=== PATIENT | female | born 1970 | race Hispanic/Latino ===

== ENCOUNTER 2025-05-28 19:54 | Emergency (ER) | payer OTHER ==
[~2025-05-28] VITALS: Ht 165.1 cm; Wt 115.7 kg
[~2025-05-28 19:54] MED LIST: ATORVASTATIN CA10 MG PO; LEVOTHYROXINE75 MCG PO; LOSARTAN POTASS50 MG PO; METFORMIN HCL500 M1 PO; VITAMIN D350 MCG PEG
[2025-05-28 20:16] VITALS: TEMP 98.4
[2025-05-28 20:40] LABS: BASOPHILS % 0.4 % (0.0-1.0); EOSINOPHILS % 3.0 % (0.0-6.0); LYMPHOCYTES % 27.7 % (18.0-39.1); MONOCYTES % 6.0 % (4.4-11.3); NEUTROPHILS % 62.7 % (38.7-80.0); RED CELL DISTRIBUTION WIDTH 14.2 % (11.7-14.4)
[2025-05-28] MEDS: LIDOCAINE VISC 2% SOLN 15 ML UDC PO STA (20:48)
[2025-05-28] MEDS: BELLADONNA ALK/PHENOBARBITAL 5 ML UDC PO ONE (20:49)
[2025-05-28] MEDS: MAGNESIUM/ALUMINUM/SIMETHICONE 30 ML UDC PO STA (20:49)
[2025-05-28 21:03] LABS: EST GLOMERULAR FILTRATION RATE 74.0 ML/MIN (>=60)
[2025-05-28] MEDS ORDERED: IOPAMIDOL 370 MG/ML 100 ML INFUS..BTL INJ ONE (21:10)
[2025-05-28 22:33] VITALS: PULSE 72; RESP 20
[2025-05-28 22:34] VITALS: BP 156/78; PULSE 72; RESP 20; O2SAT 98
== END 2025-05-28 22:31 | disposition home or self-care (01) ==
LOC: ER 20:23
DX: R10.13 Epigastric pain (principal); R07.89 Other chest pain; I10 Essential (primary) hypertension; E11.9 Type 2 diabetes mellitus without complications; E03.9 Hypothyroidism, unspecified; R94.31 Abnormal electrocardiogram [ECG] [EKG]
CPT/HCPCS: 36415; 71260; 80053; 82550; 83690; 83880; 84484; 85025; 93005; 99284; Q9967